=== PATIENT | female | born 1940 | race Caucasian/White ===

== ENCOUNTER → 2018-05-06 09:10 | Outpatient (CLI) | payer MEDICARE, SELFPAY ==
[2018-05-06 10:37] LABS: TSH w/ Reflex to FT4 2.21 uIU/mL (0.47-4.68)
== END ==
PROVIDERS: Family Provider Family Medicine; PCP Family Medicine; Visit Provider Family Medicine
DX: E03.9 Hypothyroidism, unspecified (principal)
CPT/HCPCS: 36415; 84443

== ENCOUNTER → 2018-07-13 13:25 | Outpatient (CLI) | payer MEDICARE, SELFPAY ==
--- NOTE | 2018-07-13 13:27 | DI.RAD.S_ITS ---
PROCEDURE: XR CHEST 2V INDICATIONS: cough, fatigue, fever TECHNIQUE: 2 views of the chest were acquired. COMPARISON: [facility], , CHEST 2 VIEW, 09/07/2015, 10:54. FINDINGS: Surgical changes and devices: None. Lungs and pleura: No pleural effusions or pneumothorax. Lungs are hyperexpanded suggestive of COPD. Mediastinum: Mediastinal contours are normal. Heart size is normal. Bones and chest wall: No suspicious bony abnormalities. Soft tissues appear unremarkable. IMPRESSION: No acute pulmonary process. Dictated by: Flakita Rodriguez M.D. on 07/13/2018 at 16:06 Approved by: Flakita Rodriguez M.D. on 07/13/2018 at 16:07
== END ==
PROVIDERS: PCP Family Medicine; Visit Provider Physician Assistant
DX: R05 Cough (principal); R53.83 Other fatigue; R50.9 Fever, unspecified
CPT/HCPCS: 71046

== ENCOUNTER → 2018-10-12 07:26 | Outpatient (CLI) | payer MEDICARE, SELFPAY ==
[2018-10-12 08:56] LABS: Add Manual Diff / Slide Review NO; Basophils Absolute Auto 100 /uL (0-100); Basophils Percent Auto 0.8 % (0-2); Eosinophils Absolute Auto 400 /uL (0-450); Eosinophils Percent Auto 5.8 % (2-4); Hematocrit 43.9 % (36-46); Hemoglobin 14.5 g/dL (12.0-16.0); Lymphocytes Absolute Auto 2200 /uL (1100-4500); Lymphocytes Percent Auto 33.7 % (25-40); Mean Corpuscular Hemoglobin 29.9 PG (26-34); Mean Corpuscular Volume 90.6 fL (80-100); Monocytes Absolute Auto 600 /uL (0-900); Neutrophils Absolute Auto 3400 /uL (1500-7000); Neutrophils Percent Auto 50.7 % (50-75); Platelet Count 262 X10^3/uL (150-400); Red Blood Cell Count 4.85 X10^6/uL (4.0-5.2); Red Cell Distribution Width 15.1 % (11.6-14.8); White Blood Cell Count 6.7 X10^3/uL (4.5-11.0)
[2018-10-12 09:01] LABS: Alanine Aminotransferase 28 IU/L (9-52); Albumin 4.1 g/dL (3.5-5.0); Albumin Globulin Ratio 1.2 (1.0-2.8); Alkaline Phosphatase 75 U/L (38-126); Aspartate Aminotransferase 32 IU/L (14-36); BUN Creatinine Ratio 22.9 (6-22); Bilirubin Total 0.7 mg/dL (0.2-1.3); Blood Urea Nitrogen 16 mg/dL (7-17); Calcium 9.4 mg/dL (8.4-10.2); Carbon Dioxide 29 mmol/L (22-32); Chloride 101 mmol/L (98-107); Cholesterol 189 mg/dL (140-199); Estimated Glomerular Filt Rate > 60.0 mL/min (>60); Globulin 3.3 g/dL (1.7-4.1); Glucose 93 mg/dL (80-110); HDL Cholesterol 51 mg/dL (40-60); HEMOLYSIS < 15 (0-50); LDL Cholesterol Calculated 124 mg/dL (<100); Potassium 3.9 mmol/L (3.4-5.1); Sodium 137 mmol/L (137-145); Total Protein 7.4 g/dL (6.3-8.2); Triglycerides 69 mg/dL (35-150)
[2018-10-12 09:43] LABS: TSH w/ Reflex to FT4 2.45 uIU/mL (0.47-4.68)
== END ==
PROVIDERS: PCP Family Medicine; Visit Provider Family Medicine
DX: E03.9 Hypothyroidism, unspecified (principal); E78.5 Hyperlipidemia, unspecified
CPT/HCPCS: 36415; 80053; 80061; 84443; 85025

== ENCOUNTER → 2020-01-20 09:33 | Outpatient (CLI) | payer MEDICARE, SELFPAY ==
[2020-01-20 11:24] LABS: Appearance Urine UA CLOUDY; Bilirubin Urine UA NEGATIVE (NEGATIVE); Color Urine UA YELLOW; Glucose Urine UA NEGATIVE (Negative); Ketones Urine UA NEGATIVE (NEGATIVE); Leukocyte Esterase Urine UA 3+ (NEGATIVE); Nitrite Urine UA NEGATIVE (Negative); Occult Blood Urine UA 2+ (Negative); Protein Urine UA 1+ (Negative); Specific Gravity Urine UA 1.015 (1.000-1.035); Urobilinogen Urine UA 0.2 E.U./dL (0.2)
[2020-01-20 11:38] LABS: Bacteria Urine Few (2-10); RBC Urine 10-30/HPF (0-5/HPF); Squamous Epithelial Cell Urine None Seen (0-5/HPF); WBC Urine >100/HPF (0-5/HPF)
[2020-01-20 11:39] LABS: Culture Indicated Urine Specimen Cultured
== END ==
PROVIDERS: PCP Family Medicine; Referring Provider Family Medicine; Visit Provider Family Medicine
DX: R30.0 Dysuria (principal)
CPT/HCPCS: 81001; 87077; 87086; 87186

== ENCOUNTER → 2020-03-06 08:48 | Outpatient (CLI) | payer MEDICARE, SELFPAY ==
[2020-03-07 08:15] LABS: COVID19 Sendout Not Detected (Not Detect)
== END ==
PROVIDERS: PCP Family Medicine; Visit Provider Physician Assistant
DX: Z01.812 Encounter for preprocedural laboratory examination (principal)
CPT/HCPCS: 87635

== ENCOUNTER 2020-03-09 06:28 | Day surgery (SDC) | payer MEDICARE, SELFPAY ==
[2020-03-02 11:38] VITALS: BMI 23.1
[2020-03-09] VITALS (7 sets, daily range): BP systolic 143–186; BP diastolic 76–89; PULSE 68–88; RESP 11–18; TEMP 36.2–36.6; O2SAT 94–100; BMI 23.1
--- NOTE | 2020-03-09 07:12 | SUR.OPER ---
Lithotomy on padded OR bed, head on pillow, arms secured on padded arm boards at <90 degrees abduction. Legs secured in padded yellow fins stirrups.
--- NOTE | 2020-03-09 07:23 | PM.PREOP ---
Pre-operative Note COVID-19 COVID-19 status: Negative Result date/Date tested (Pos, Neg/Pending): 03/06/20 Interval Note History & Physical reviewed/Exam performed by Physician: Yes Changes to H&P: No
[2020-03-09] MEDS: LACTATED RINGERS 1,000 ML 42 ML IV (07:38)
[2020-03-09] MEDS: CEFAZOLIN 2 GM/100 ML FROZ.PIGGY IV (07:42)
[2020-03-09] MEDS: BUPIVACAINE 0.5% W/ EPI (PF) 30 ML VIAL INJ (08:04)
--- NOTE | 2020-03-09 08:55 | P.OP_ITS ---
Operative Date/Time/Diagnoses Date of procedure: 03/09/20 Time of procedure: 08:55 Pre-op diagnosis: Symptomatic vaginal wall prolapse, cystocele predominant Post-op diagnosis: same Procedure & Clinicians Procedure: Colpocleisis Same procedure as scheduled: Yes Surgeon: Patricia Kapoor District Manager [employer] Sales: Yaz López Click Yes if Unassisted: No Anesthesia Type: General Operative Notes Findings: No vaginal lesions, uterus absent, cystocele with minimal rectocele Closure Type: primary Specimen(s): none sent Estimated Blood Loss (mL): 15 Blood products transfused: none Procedure in detail: - Patient was brought to the operating room where she was in a supine position in [facility] and underwent a light general anesthetic. She was prepped and draped in the usual sterile fashion. Her bladder was drained. 2 g of Ancef were in prior to beginning of the case. Warming was in place. Pulsatile stockings were in place. Area on anterior and posterior wall of the prolapse were marked with a marking pen and injected with a dilute solution of half percent Marcaine with epinephrine. The skin was incised with a scalpel and undermined with and removed removed with Metzenbaum scissors. 2-0 Vicryl suture was used in an interrupted fashion to close anterior to posterior on the sides creating a tunnel from the vaginal cuff to the external area. A plication suture with 0 Polysorb suture was placed at the urethrovesical junction. The anterior vaginal incision was closed from anterior to posterior fully closing off the vagina except for the tunnels on each side. Counts of instruments and sponges were correct. Patient went to recovery room in good condition. Complications: none Post-operative Condition: stable Disposition: same day surgery Plan for aftercare: Patient to call if she has concerns for bleeding, fever, pain
--- NOTE | 2020-03-09 12:31 | SUR.PHASEII ---
pt had moderate amt of clear/blood tinged liquid. Spoke with Dr Shrestha, he stated that there may have been some pooling of fluid in the vagina during surgery. Bladder was emptied during surgery. He stated drainage should stop. Pt went to bathroom and was able to clean up, she stated drainage had slowed significantly. Pt was informed of conversation with Dr Shrestha. Told that if she continues draining large amounts of fluid, she needs to let MD know. Pt and sister aware and agree to plan.
== END 2020-03-09 10:20 | disposition home or self-care (01) ==
PROVIDERS: PCP Family Medicine; Referring Provider Specialist; Visit Provider Specialist
PROC: (CPT 57120; principal; 2020-03-09 07:45)
DX: N99.3 Prolapse of vaginal vault after hysterectomy (principal); Z01.818 Encounter for other preprocedural examination
CPT/HCPCS: 57120; J0690; J1100; J2405; J2704; J3010

== ENCOUNTER → 2020-04-27 13:41 | Outpatient (CLI) | payer MEDICARE, SELFPAY | PROVIDERS: PCP Family Medicine; Referring Provider Specialist; Visit Provider Specialist | DX: R32 Unspecified urinary incontinence (principal) | CPT/HCPCS: 87086 ==

== ENCOUNTER → 2020-06-19 11:20 | Outpatient (CLI) | payer MEDICARE, SELFPAY ==
[2020-06-19 12:09] LABS: Alanine Aminotransferase 18 IU/L (<35); Albumin 4.3 g/dL (3.5-5.0); Albumin Globulin Ratio 1.3 (1.0-2.8); Alkaline Phosphatase 106 U/L (38-126); Aspartate Aminotransferase 34 IU/L (14-36); BUN Creatinine Ratio 26.4 (6-22); Bilirubin Total 0.4 mg/dL (0.2-1.3); Blood Urea Nitrogen 14 mg/dL (7-17); Calcium 9.5 mg/dL (8.4-10.2); Carbon Dioxide 32 mmol/L (22-32); Chloride 102 mmol/L (98-107); Estimated Glomerular Filt Rate > 60.0 mL/min (>60); Globulin 3.4 g/dL (1.7-4.1); Glucose 103 mg/dL (80-110); HEMOLYSIS < 15 (0-50); Potassium 4.4 mmol/L (3.4-5.1); Sodium 138 mmol/L (137-145); Total Protein 7.7 g/dL (6.3-8.2)
== END ==
PROVIDERS: PCP Family Medicine; Referring Provider Registered Nurse; Visit Provider Registered Nurse
DX: I10 Essential (primary) hypertension (principal)
CPT/HCPCS: 36415; 80053

== ENCOUNTER → 2020-06-22 11:34 | Outpatient (CLI) | payer MEDICARE, SELFPAY ==
[2020-06-22 12:15] LABS: Add Manual Diff / Slide Review NO; Basophils Absolute Auto 100 /uL (0-100); Basophils Percent Auto 0.7 % (0-2); Eosinophils Absolute Auto 300 /uL (0-450); Eosinophils Percent Auto 3.6 % (2-4); Hematocrit 43.1 % (36-46); Lymphocytes Absolute Auto 2600 /uL (1100-4500); Lymphocytes Percent Auto 34.6 % (25-40); Mean Corpuscular HGB Conc 32.6 % (30-36); Mean Corpuscular Hemoglobin 29.2 PG (26-34); Mean Corpuscular Volume 89.5 fL (80-100); Monocytes Absolute Auto 800 /uL (0-900); Monocytes Percent Auto 10.3 % (3-14); Neutrophils Absolute Auto 3900 /uL (1500-7000); Neutrophils Percent Auto 50.8 % (50-75); Platelet Count 277 X10^3/uL (150-400); Red Blood Cell Count 4.82 X10^6/uL (4.0-5.2); Red Cell Distribution Width 14.1 % (11.6-14.8); White Blood Cell Count 7.7 X10^3/uL (4.5-11.0)
[2020-06-23 04:41] LABS: Alpha 1 Anti Trypsin 132 mg/dL (101-187)
== END ==
PROVIDERS: PCP Family Medicine; Referring Provider Family Medicine; Visit Provider Registered Nurse
DX: J44.9 Chronic obstructive pulmonary disease, unspecified (principal); R06.02 Shortness of breath
CPT/HCPCS: 36415; 82103; 85025

== ENCOUNTER → 2020-06-26 11:36 | Outpatient (CLI) | payer MEDICARE, SELFPAY ==
[2020-06-26 13:50] LABS: COVID19 -Nasal RAPID Negative (Negative)
== END ==
PROVIDERS: PCP Family Medicine; Visit Provider Physician Assistant
DX: Z01.812 Encounter for preprocedural laboratory examination (principal)
CPT/HCPCS: 87635

== ENCOUNTER → 2020-06-29 10:39 | Outpatient (CLI) | payer MEDICARE, SELFPAY ==
--- NOTE | 2020-07-04 08:11 | P.PFT.S_ITS ---
Pulmonary Function Test Referral & Results Date Patient Seen: 06/29/20 Requesting provider: Teodora Parker Indication: COPD Results: The spirometry demonstrates an FVC of 1.95 L which is 73% of predicted. The FEV1 was measured at 0.61 L which is 30% of predicted. The FEV1/FVC ratio was 31 which is 42% of predicted. Following the administration of bronchodilator there was a 30% improvement in FEV1 and a 7% improvement in FEV1/FVC as well as a 72% improvement in FEF 25- 75%. Lung volumes show an SVC of 1.69 L which is 62% of predicted. The diffusing capacity was measured at 8.8 which is 36% of predicted. No hemoglobin value was provided, so no correction for potential anemia could be made, if appropriate. The maximum voluntary ventilation was reduced Interpretation: This study demonstrates severe obstructive lung disease with FEV1 of less than 1 L. There is evidence of significant benefit following bronchodilator based on improvement in FEV1 as above There is also moderate restrictive lung disease based on reduction SVC There is also significant reduction in diffusing capacity as above suggesting patient might well be hypoxic at times on room air This is all consistent with a diagnosis of COPD. Clinical correlation suggested
== END ==
PROVIDERS: PCP Family Medicine; Referring Provider Registered Nurse; Visit Provider Registered Nurse
DX: J44.9 Chronic obstructive pulmonary disease, unspecified (principal)
CPT/HCPCS: 94060; 94726; 94729

== ENCOUNTER → 2020-07-04 13:37 | Outpatient (CLI) | payer MEDICARE, SELFPAY ==
--- NOTE | 2020-07-04 13:40 | DI.RAD.S_ITS ---
PROCEDURE: XR CHEST 2V INDICATIONS: Abnormal results of pulmonary function studies TECHNIQUE: 2 views of the chest were acquired. COMPARISON: [facility], , XR CHEST 2V, 07/13/2018, 13:30. [facility], , CHEST 2 VIEW, 09/07/2015, 10:54. FINDINGS: Surgical changes and devices: None. Lungs and pleura: Lungs are clear. No pleural effusions or pneumothorax. Mediastinum: Mediastinal contours are normal. Heart size is normal. Bones and chest wall: No suspicious bony abnormalities. Soft tissues appear unremarkable. IMPRESSION: Normal for age, source of abnormal pulmonary function tests is not seen. . Dictated by: Theron Traylor M.D. on 07/04/2020 at 15:53 Approved by: Theron Traylor M.D. on 07/04/2020 at 15:53
== END ==
PROVIDERS: PCP Family Medicine; Referring Provider Family Medicine; Visit Provider Family Medicine
DX: R94.2 Abnormal results of pulmonary function studies (principal)
CPT/HCPCS: 71046

== ENCOUNTER → 2020-07-17 14:51 | Outpatient (CLI) | payer MEDICARE, SELFPAY ==
--- NOTE | 2020-07-17 14:54 | DI.CT.S_ITS ---
PROCEDURE: CT CHEST HIGH RESOLUTION INDICATIONS: obstructive/restrictive disease on PFT increased diffusing TECHNIQUE: Noncontrast 1.0 and 5.0 mm thick contiguous axial sections from the pulmonary apex to the posterior costophrenic angles, with 7 mm thick coronal and sagittal MIP reformats. 1 mm thick dynamic expiratory images acquired through the upper, mid, and lower lungs. 1.0 mm thick axial sections acquired from the julius to the posterior costophrenic angles in the prone end-inspiration position. For radiation dose reduction, the following was used: automated exposure control, adjustment of mA and/or kV according to patient size. COMPARISON: [facility], CR, XR CHEST 2V, 07/04/2020, 13:42. FINDINGS: Image quality: Excellent. Lungs: There is mild linear scarring at each lung base, best seen posteriorly on the right and left, medially. No alveolitis or pulmonary fibrosis is found. Note is made of mild prominence of the peribronchial soft tissues involving the lungs bilaterally, indicating mild chronic bronchitis. No bronchiectasis is seen. No pulmonary mass or active inflammation is present. Pleura: No pleural effusions or pneumothorax. Mediastinum: Heart size is normal. No pericardial effusion. Thoracic aorta and central pulmonary arteries are normal in size. Esophagus is normal in caliber. Bones and chest wall: No suspicious bony lesions. No vertebral body compression fractures. Abdomen: Visualized upper abdominal solid organs and bowel loops appear normal. IMPRESSION: No sign of active alveolitis or pulmonary fibrosis. Mild chronic bronchitis present as indicated by mild bronchial wall thickening without evidence of bronchiectasis. No active pneumonia or underlying neoplasm is found. Mild lung base scarring posteriorly. Dictated by: Theron Traylor M.D. on 07/17/2020 at 16:20 Approved by: Theron Traylor M.D. on 07/17/2020 at 16:23
== END ==
PROVIDERS: PCP Family Medicine; Referring Provider Family Medicine; Visit Provider Family Medicine
DX: J44.9 Chronic obstructive pulmonary disease, unspecified (principal)
CPT/HCPCS: 71250

== ENCOUNTER → 2021-08-12 10:46 | Outpatient (CLI) | payer MEDICARE, SELFPAY | PROVIDERS: PCP Family Medicine; Visit Provider Physician Assistant | DX: N34.3 Urethral syndrome, unspecified (principal) | CPT/HCPCS: 87077; 87086; 87186 ==

== ENCOUNTER → 2021-08-30 16:58 | Outpatient (CLI) | payer MEDICARE, SELFPAY ==
[2021-08-30 17:48] LABS: Appearance Urine UA CLEAR; Bilirubin Urine UA NEGATIVE (NEGATIVE); Color Urine UA YELLOW; Glucose Urine UA NEGATIVE (Negative); Ketones Urine UA NEGATIVE (NEGATIVE); Leukocyte Esterase Urine UA NEGATIVE (NEGATIVE); Nitrite Urine UA NEGATIVE (Negative); Occult Blood Urine UA NEGATIVE (Negative); Protein Urine UA NEGATIVE (Negative); Specific Gravity Urine UA <=1.005 (1.000-1.035); Urobilinogen Urine UA 0.2 E.U./dL (0.2)
[2021-08-30 17:55] LABS: pH Urine UA 6.5 (4.5-8.0)
[2021-08-30 17:56] LABS: Bacteria Urine None Seen; Culture Indicated Urine Cult Not Indicated; RBC Urine None Seen (0-5/HPF); Squamous Epithelial Cell Urine 0-1 /HPF (0-5/HPF); WBC Urine 0-1/HPF (0-5/HPF)
== END ==
PROVIDERS: PCP Family Medicine; Referring Provider Family Medicine; Visit Provider Family Medicine
DX: N39.0 Urinary tract infection, site not specified (principal); R30.0 Dysuria; R35.0 Frequency of micturition; R39.15 Urgency of urination
CPT/HCPCS: 81001

== ENCOUNTER → 2021-08-31 11:07 | Outpatient (CLI) | payer MEDICARE, SELFPAY | PROVIDERS: PCP Family Medicine; Visit Provider Family Medicine | DX: R30.0 Dysuria (principal) | CPT/HCPCS: 87086 ==

== ENCOUNTER → 2021-12-02 07:34 | Outpatient (CLI) | payer MEDICARE, SELFPAY ==
[2021-12-02 08:37] LABS: Add Manual Diff / Slide Review NO; Basophils Absolute Auto 100 /uL (0-100); Basophils Percent Auto 0.9 % (0-2); Eosinophils Absolute Auto 200 /uL (0-450); Hematocrit 43.2 % (36-46); Hemoglobin 14.2 g/dL (12.0-16.0); Lymphocytes Absolute Auto 2500 /uL (1100-4500); Lymphocytes Percent Auto 39.5 % (25-40); Mean Corpuscular HGB Conc 32.8 % (30-36); Mean Corpuscular Hemoglobin 29.1 PG (26-34); Mean Corpuscular Volume 88.9 fL (80-100); Monocytes Absolute Auto 500 /uL (0-900); Monocytes Percent Auto 8.5 % (3-14); Neutrophils Absolute Auto 3000 /uL (1500-7000); Neutrophils Percent Auto 48.1 % (50-75); Platelet Count 249 X10^3/uL (150-400); Red Blood Cell Count 4.86 X10^6/uL (4.0-5.2); Red Cell Distribution Width 15.1 % (11.6-14.8); White Blood Cell Count 6.2 X10^3/uL (4.5-11.0)
[2021-12-02 08:58] LABS: Alanine Aminotransferase 20 IU/L (<35); Albumin 4.2 g/dL (3.5-5.0); Albumin Globulin Ratio 1.2 (1.0-2.8); Alkaline Phosphatase 108 U/L (38-126); Aspartate Aminotransferase 31 IU/L (14-36); BUN Creatinine Ratio 15.6 (6-22); Bilirubin Total 0.5 mg/dL (0.2-1.3); Blood Urea Nitrogen 10 mg/dL (7-17); Carbon Dioxide 31 mmol/L (22-32); Chloride 103 mmol/L (98-107); Cholesterol 171 mg/dL (140-199); Estimated Glomerular Filt Rate > 60.0 mL/min (>60); Globulin 3.4 g/dL (1.7-4.1); Glucose 100 mg/dL (80-110); HDL Cholesterol 54 mg/dL (40-60); HEMOLYSIS < 15 (0-50); LDL Cholesterol Calculated 99 mg/dL (<100); Sodium 140 mmol/L (137-145); Total Protein 7.6 g/dL (6.3-8.2); Triglycerides 89 mg/dL (35-150)
[2021-12-02 09:21] LABS: TSH w/ Reflex to FT4 3.39 uIU/mL (0.47-4.68)
[2021-12-02 09:46] LABS: Microalbumin Urine Random 0.6 mg/dL (0-1.6)
[2021-12-02 15:59] LABS: Creatinine Urine Random 45.1 mg/dL; Microalbumi Creatinin Ratio Ur 13.3 ug/mg CR (<30)
== END ==
PROVIDERS: PCP Family Medicine; Referring Provider Family Medicine; Visit Provider Family Medicine
DX: E03.9 Hypothyroidism, unspecified (principal); I10 Essential (primary) hypertension; E78.5 Hyperlipidemia, unspecified
CPT/HCPCS: 36415; 80053; 80061; 82043; 82570; 84443; 85025

== ENCOUNTER → 2022-03-06 17:33 | Outpatient (CLI) | payer MEDICARE, SELFPAY ==
[2022-03-06 17:53] LABS: Add Manual Diff / Slide Review NO; Basophils Absolute Auto 100 /uL (0-100); Basophils Percent Auto 0.8 % (0-2); Eosinophils Absolute Auto 200 /uL (0-450); Eosinophils Percent Auto 3.5 % (2-4); Hematocrit 42.9 % (36-46); Hemoglobin 14.5 g/dL (12.0-16.0); Lymphocytes Absolute Auto 2400 /uL (1100-4500); Lymphocytes Percent Auto 34.1 % (25-40); Mean Corpuscular HGB Conc 33.9 % (30-36); Mean Corpuscular Hemoglobin 29.8 PG (26-34); Monocytes Absolute Auto 700 /uL (0-900); Monocytes Percent Auto 9.5 % (3-14); Neutrophils Absolute Auto 3700 /uL (1500-7000); Neutrophils Percent Auto 52.1 % (50-75); Platelet Count 231 X10^3/uL (150-400); Red Blood Cell Count 4.87 X10^6/uL (4.0-5.2); Red Cell Distribution Width 14.8 % (11.6-14.8); White Blood Cell Count 7.1 X10^3/uL (4.5-11.0)
[2022-03-06 18:08] LABS: D Dimer 311 ng/mL (<230)
[2022-03-06 18:13] LABS: Alanine Aminotransferase 28 IU/L (<35); Albumin 4.3 g/dL (3.5-5.0); Albumin Globulin Ratio 1.2 (1.0-2.8); Alkaline Phosphatase 118 U/L (38-126); Aspartate Aminotransferase 44 IU/L (14-36); BUN Creatinine Ratio 22.8 (6-22); Bilirubin Total 0.5 mg/dL (0.2-1.3); Blood Urea Nitrogen 13 mg/dL (7-17); Calcium 9.3 mg/dL (8.4-10.2); Carbon Dioxide 28 mmol/L (22-32); Chloride 102 mmol/L (98-107); Estimated Glomerular Filt Rate > 60 mL/min (>60); Globulin 3.7 g/dL (1.7-4.1); Glucose 92 mg/dL (80-110); HEMOLYSIS 16 (0-50); Potassium 3.8 mmol/L (3.4-5.1); Sodium 139 mmol/L (137-145)
[2022-03-06 18:21] LABS: NT-proBNP (BNP-Adult 18+) 96 pg/mL (<450)
[2022-03-06 18:29] LABS: Erythrocyte Sedimentation Rate 5 MM/HR (0-20)
== END ==
PROVIDERS: PCP Pediatrics; Referring Provider Pediatrics; Visit Provider Pediatrics
DX: E03.9 Hypothyroidism, unspecified (principal); L98.6 Other infiltrative disorders of the skin and subcutaneous tissue; J45.40 Moderate persistent asthma, uncomplicated; R94.2 Abnormal results of pulmonary function studies
CPT/HCPCS: 36415; 80053; 83880; 84443; 85025; 85379; 85651

== ENCOUNTER → 2022-03-14 19:20 | Outpatient (CLI) | payer MEDICARE, SELFPAY ==
--- NOTE | 2022-03-14 19:23 | DI.RAD.S_ITS ---
PROCEDURE: XR CHEST 2V INDICATIONS: progressive VILLALOBOS, dx asthma TECHNIQUE: 2 views of the chest were acquired. COMPARISON: [facility], , CHEST 2 VIEW, 09/07/2015, 10:54. [facility], , XR CHEST 2V, 07/04/2020, 13:42. FINDINGS: Surgical changes and devices: None. Lungs and pleura: There is hyperinflation of the lungs with flattening of the hemidiaphragms compatible with COPD. Linear opacities are redemonstrated medially in the lung bases consistent with scarring. No acute consolidation. No pleural effusions or pneumothorax. Mediastinum: Mediastinal contours are normal. Heart size is normal. Bones and chest wall: No suspicious bony abnormalities. Soft tissues appear unremarkable. IMPRESSION: 1. Findings compatible with COPD redemonstrated. Dictated by: Dany Morales M.D. on 03/15/2022 at 1:26 Approved by: Dany Morales M.D. on 03/15/2022 at 1:27
== END ==
PROVIDERS: PCP Pediatrics; Referring Provider Pediatrics; Visit Provider Pediatrics
DX: R94.2 Abnormal results of pulmonary function studies (principal); R06.09 Other forms of dyspnea; E03.9 Hypothyroidism, unspecified; J45.40 Moderate persistent asthma, uncomplicated; L98.6 Other infiltrative disorders of the skin and subcutaneous tissue
CPT/HCPCS: 71046

== ENCOUNTER → 2022-03-22 11:33 | Outpatient (CLI) | payer MEDICARE, SELFPAY ==
--- NOTE | 2022-03-22 11:34 | DI.CT.S_ITS ---
PROCEDURE: CT ANGIO CHEST PE PROTOCOL INDICATIONS: Progressive VILLALOBOS and hx of asthma TECHNIQUE: After the administration of intravenous contrast, 2 mm thick sections acquired from the pulmonary apices to the posterior costophrenic angles. 3-dimensional maximum intensity projection (MIP) coronal and sagittal reformats were then acquired through the thorax. For radiation dose reduction, the following was used: automated exposure control, adjustment of mA and/or kV according to patient size. COMPARISON: [facility], CT, CT CHEST HIGH RESOLUTION, 07/17/2020, 14:54. [facility], CR, XR CHEST 2V, 03/14/2022, 20:21. [facility], CR, XR CHEST 2V, 07/04/2020, 13:42. [facility], CR, XR CHEST 2V, 07/13/2018, 13:30. FINDINGS: Image quality: Excellent. Pulmonary arteries: Pulmonary arteries are normal in size, and demonstrate no intraluminal filling defects to suggest central pulmonary embolism. Lungs and pleura: Lungs are clear. No pleural effusions or pneumothorax. Central and peripheral airways are patent. Mediastinum: Heart size is normal, without pericardial effusion. No mediastinal or hilar adenopathy. Thoracic aorta is normal in caliber and enhancement. Esophagus is normal in caliber, without hiatal hernia. Bones and chest wall: No suspicious bony lesions. Ribs and thoracic spine appear intact throughout. Thyroid gland demonstrates an 8 mm left-sided nodule. No axillary or supraclavicular adenopathy. Abdomen: Incidental note is made of an accessory splenule along the inferior aspect of the primary spleen. The visualized portions of the upper abdominal structures are otherwise unremarkable for imaging technique. IMPRESSION: Negative for pulmonary embolism. 8 mm left thyroid nodule incidentally noted. If clinically appropriate, please consider a follow-up thyroid ultrasound for further evaluation. Incidental note is made of: Accessory splenule Dictated by: Onesimo Amin M.D. on 03/22/2022 at 12:03 Approved by: Onesimo Amin M.D. on 03/22/2022 at 12:05
== END ==
PROVIDERS: PCP Pediatrics; Referring Provider Pediatrics; Visit Provider Pediatrics
DX: R06.09 Other forms of dyspnea (principal); J44.9 Chronic obstructive pulmonary disease, unspecified; J45.40 Moderate persistent asthma, uncomplicated; R94.2 Abnormal results of pulmonary function studies; R06.02 Shortness of breath; I10 Essential (primary) hypertension; E04.1 Nontoxic single thyroid nodule
CPT/HCPCS: 71275

== ENCOUNTER → 2022-10-15 13:18 | Outpatient (CLI) | payer MEDICARE, SELFPAY | PROVIDERS: Visit Provider Registered Nurse | DX: R30.0 Dysuria (principal) | CPT/HCPCS: 87077; 87086; 87186 ==

== ENCOUNTER → 2022-10-30 18:23 | Outpatient (CLI) | payer MEDICARE, SELFPAY | PROVIDERS: PCP Family Medicine; Visit Provider Registered Nurse | DX: N39.0 Urinary tract infection, site not specified (principal) | CPT/HCPCS: 87086 ==

== ENCOUNTER → 2022-11-07 09:32 | Outpatient (CLI) | payer MEDICARE, SELFPAY ==
--- NOTE | 2022-11-07 09:33 | DI.US.S_ITS ---
PROCEDURE: US RENAL COMPLETE INDICATIONS: abdominal pain, hx of bladder sling, hyst TECHNIQUE: Real-time scanning was performed of the kidneys and bladder, with image documentation. COMPARISON: None. FINDINGS: Kidneys: Right kidney measures 9.8 cm long; left kidney measures 9.9 cm long. Right renal cortical thickness is 0.6 cm; left renal cortical thickness is 0.7 cm. Renal cortical echotexture is normal. No hydronephrosis. There is a 3 x 2 x 3 mm calcification within the right kidney. No suspicious solid mass lesions. Bladder: Pre-void bladder volume is 47 mL. Post-void residual is 0 mL. Pre-void images demonstrate no intraluminal masses or stones. On pre-void images, none ureteral jets are noted with color Doppler interrogation. (Of note, ureteral jets may not be detectable in up to 25% of cases due to insufficient differences in specific gravity between ureteral and bladder urine). Miscellaneous: No free pelvic fluid. IMPRESSION: Nonobstructing right renal calculus. Dictated by: Flakita Rodriguez M.D. on 11/07/2022 at 16:45 Approved by: Flakita Rodriguez M.D. on 11/07/2022 at 16:47
== END ==
PROVIDERS: PCP Family Medicine; Referring Provider Family Medicine; Visit Provider Family Medicine
DX: R10.9 Unspecified abdominal pain (principal); N20.0 Calculus of kidney
CPT/HCPCS: 76770

== ENCOUNTER → 2023-02-19 11:30 | Outpatient (CLI) | payer MEDICARE, SELFPAY ==
[2023-02-19 12:23] LABS: Hematocrit 40.4 % (36-46); Hemoglobin 13.7 g/dL (12.0-16.0); Mean Corpuscular HGB Conc 33.8 % (30-36); Mean Corpuscular Hemoglobin 30.1 PG (26-34); Platelet Count 240 X10^3/uL (150-400); Red Blood Cell Count 4.54 X10^6/uL (4.0-5.2); Red Cell Distribution Width 14.4 % (11.6-14.8)
[2023-02-19 12:35] LABS: Alanine Aminotransferase 26 IU/L (<35); Albumin Globulin Ratio 1.2 (1.0-2.8); Alkaline Phosphatase 134 U/L (38-126); Aspartate Aminotransferase 32 IU/L (14-36); BUN Creatinine Ratio 20.6 (6-22); Bilirubin Total 0.5 mg/dL (0.2-1.3); Blood Urea Nitrogen 13 mg/dL (7-17); Calcium 9.1 mg/dL (8.4-10.2); Carbon Dioxide 29 mmol/L (22-32); Chloride 99 mmol/L (98-107); Cholesterol 175 mg/dL (140-199); Estimated Glomerular Filt Rate > 60 mL/min (>60); Globulin 3.3 g/dL (1.7-4.1); Glucose 95 mg/dL (80-110); HDL Cholesterol 47 mg/dL (40-60); HEMOLYSIS < 15 (0-50); LDL Cholesterol Calculated 102 mg/dL (<100); Potassium 4.4 mmol/L (3.4-5.1); Sodium 135 mmol/L (137-145); Total Protein 7.3 g/dL (6.3-8.2); Triglycerides 131 mg/dL (35-150)
[2023-02-19 13:04] LABS: TSH w/ Reflex to FT4 2.48 uIU/mL (0.47-4.68)
== END ==
PROVIDERS: PCP Family Medicine; Referring Provider Family Medicine; Visit Provider Family Medicine
DX: E03.9 Hypothyroidism, unspecified (principal); E78.5 Hyperlipidemia, unspecified; I10 Essential (primary) hypertension
CPT/HCPCS: 36415; 80053; 80061; 84443; 85027

== ENCOUNTER 2023-02-26 10:15 | Outpatient (RCR) | payer MEDICARE, SELFPAY | END 2023-03-02 13:20 | LOC: PUL 10:15 | PROVIDERS: PCP Family Medicine; Referring Provider Family Medicine; Visit Provider Family Medicine | DX: R94.2 Abnormal results of pulmonary function studies (principal); R06.02 Shortness of breath; R06.09 Other forms of dyspnea | CPT/HCPCS: G0237; G0238 ==

== ENCOUNTER → 2024-03-16 10:12 | Outpatient (CLI) | payer MEDICARE, SELFPAY ==
[2024-03-16 11:21] LABS: Add Manual Diff / Slide Review NO; Basophils Absolute Auto 0 /uL (0-100); Basophils Percent Auto 0.5 % (0-2); Eosinophils Absolute Auto 200 /uL (0-450); Eosinophils Percent Auto 2.2 % (2-4); Hematocrit 43.9 % (36-46); Hemoglobin 14.7 g/dL (12.0-16.0); Lymphocytes Absolute Auto 2800 /uL (1100-4500); Lymphocytes Percent Auto 31.1 % (25-40); Mean Corpuscular HGB Conc 33.5 % (30-36); Mean Corpuscular Hemoglobin 29.9 PG (26-34); Mean Corpuscular Volume 89.1 fL (80-100); Monocytes Absolute Auto 800 /uL (0-900); Monocytes Percent Auto 8.9 % (3-14); Neutrophils Absolute Auto 5100 /uL (1500-7000); Neutrophils Percent Auto 57.3 % (50-75); Platelet Count 264 X10^3/uL (150-400); Red Blood Cell Count 4.93 X10^6/uL (4.0-5.2); Red Cell Distribution Width 14.7 % (11.6-14.8); White Blood Cell Count 8.9 X10^3/uL (4.5-11.0)
[2024-03-16 12:05] LABS: Alanine Aminotransferase 26 IU/L (<35); Albumin 4.3 g/dL (3.5-5.0); Albumin Globulin Ratio 1.2 (1.0-2.8); Alkaline Phosphatase 130 U/L (38-126); Aspartate Aminotransferase 35 IU/L (14-36); Bilirubin Total 0.6 mg/dL (0.2-1.3); Blood Urea Nitrogen 13 mg/dL (7-17); Calcium 9.3 mg/dL (8.4-10.2); Carbon Dioxide 27 mmol/L (22-32); Chloride 102 mmol/L (98-107); Estimated Glomerular Filt Rate > 60 mL/min (>60); Globulin 3.5 g/dL (1.7-4.1); Glucose 95 mg/dL (80-110); HEMOLYSIS < 15 (0-50); Potassium 4.3 mmol/L (3.4-5.1); Sodium 136 mmol/L (137-145); Total Protein 7.8 g/dL (6.3-8.2)
[2024-03-16 12:29] LABS: TSH w/ Reflex to FT4 2.94 uIU/mL (0.47-4.68)
[2024-03-16 12:37] LABS: Ferritin 45 ng/mL (11-264)
== END ==
PROVIDERS: PCP Family Medicine; Referring Provider Family Medicine; Visit Provider Family Medicine
DX: E03.9 Hypothyroidism, unspecified (principal); R06.09 Other forms of dyspnea; R53.83 Other fatigue
CPT/HCPCS: 36415; 80053; 82728; 84443; 85025

== ENCOUNTER → 2024-10-05 11:25 | Outpatient (CLI) | payer MEDICARE, SELFPAY ==
[2024-10-05 11:59] LABS: Add Manual Diff / Slide Review NO; Basophils Absolute Auto 0 /uL (0-100); Basophils Percent Auto 0.3 % (0-2); Eosinophils Absolute Auto 200 /uL (0-450); Eosinophils Percent Auto 2.4 % (2-4); Lymphocytes Absolute Auto 2200 /uL (1100-4500); Mean Corpuscular HGB Conc 32.7 % (30-36); Mean Corpuscular Hemoglobin 29.7 PG (26-34); Monocytes Absolute Auto 900 /uL (0-900); Monocytes Percent Auto 8.9 % (3-14); Neutrophils Absolute Auto 6900 /uL (1500-7000); Neutrophils Percent Auto 67.4 % (50-75); Platelet Count 237 X10^3/uL (150-400); Red Blood Cell Count 5.06 X10^6/uL (4.0-5.2); Red Cell Distribution Width 14.9 % (11.6-14.8); White Blood Cell Count 10.3 X10^3/uL (4.5-11.0)
[2024-10-06 08:08] LABS: Alpha 1 Anti Trypsin 138 mg/dL (101-187)
[2024-10-07 18:36] LABS: Aspergillus fumigatus IgE <0.10 kU/L (Class 0)
[2024-10-08 23:08] LABS: Immunoglobulin E 213 IU/mL (6-495)
== END ==
PROVIDERS: PCP Family Medicine; Referring Provider Internal Medicine; Visit Provider Internal Medicine
DX: J45.50 Severe persistent asthma, uncomplicated (principal); J44.9 Chronic obstructive pulmonary disease, unspecified; J30.9 Allergic rhinitis, unspecified
CPT/HCPCS: 36415; 82103; 82785; 85025; 86003; 99215

== ENCOUNTER → 2024-11-01 11:03 | Outpatient (CLI) | payer MEDICARE, SELFPAY | PROVIDERS: PCP Family Medicine; Referring Provider Internal Medicine; Visit Provider Internal Medicine | DX: Z91.09 Other allergy status, other than to drugs and biological substances (principal); J45.50 Severe persistent asthma, uncomplicated | CPT/HCPCS: 36415; 82785; 86003 ==

== ENCOUNTER → 2025-03-15 07:31 | Outpatient (CLI) | payer MEDICARE, SELFPAY ==
[2025-03-15 09:04] LABS: TSH w/ Reflex to FT4 4.01 uIU/mL (0.47-4.68)
== END ==
PROVIDERS: PCP Family Medicine; Referring Provider Family Medicine; Visit Provider Family Medicine
DX: E03.9 Hypothyroidism, unspecified (principal)
CPT/HCPCS: 36415; 84443

== ENCOUNTER → 2025-04-03 08:48 | Outpatient (CLI) | payer MEDICARE, SELFPAY | PROVIDERS: PCP Family Medicine; Visit Provider Nurse Practitioner Family | DX: L08.9 Local infection of the skin and subcutaneous tissue, unspecified (principal) | CPT/HCPCS: 87070; 87075; 87077; 87147; 87186; 87205 ==